=== PATIENT | female | born 1965 | race Caucasian/White ===

== ENCOUNTER 2018-09-28 17:12 | Emergency (ER) | payer OTHER ==
[~2018-09-28] VITALS: Ht 152.4 cm; Wt 70.6 kg
[2018-09-28 17:15] VITALS: Ht 152.4 cm; Wt 70.6 kg
--- NOTE | 2018-09-28 17:48 | ERD ---
ER Documentation Chief Complaint Chief Complaint TIRED HPI The patient is a 53-year-old female, presenting to the ER because she has felt tired for more than a month, she had two the ER visit, complains of intermittent chest discomfort for more than a month, seen by her physician today who sent her to the ER. She denies fever, chills, neck pain, chest chest pain, abdominal pain, vomiting, dizzy, diarrhea. She does not smoke nor drink Past medical history: Hypertension, anxiety Past surgical history: Umbilical herniorrhaphy ROS All systems reviewed and are negative except as per history of present illness. Medications Home Meds Reported Medications Vitamin B Complex* (Vitamin B Complex*) 1 Each Tablet, 1 TAB PO DAILY, TAB 09/28/18 Triamterene/Hctz* (Maxzide (37.5-25)*) 1 Each Tablet, 1 EACH PO DAILY, #30 TAB 09/28/18 Naproxen* (Naprosyn*) 500 Mg Tablet, 500 MG PO BID, TAB 09/28/18 Lorazepam* (Lorazepam*) 1 Mg Tablet, 1 MG PO HS PRN for ANXIETY, #30 TAB 09/28/18 Ibuprofen* (Ibuprofen*) 600 Mg Tablet, 600 MG PO Q6H PRN for PAIN LEVEL 1-5, TAB 09/28/18 Carisoprodol* (Carisoprodol*) 350 Mg Tablet, 350 MG PO Q8 PRN for MUSCLE SPASMS, TAB 09/28/18 Allergies Allergies: Coded Allergies: No Known Allergy (Unverified , 09/28/18) Physical Exam Vitals Physical Exam Const: No acute distress. Head: Atraumatic. Eyes: Normal Conjunctiva. ENT: Normal External Ears, Nose and Mouth. Neck: Full range of motion. No meningismus. Resp: Clear to auscultation bilaterally. Cardio: Regular rate and rhythm. Abd: Soft, non distended, normal bowel sounds, non tender. Skin: No petechiae or rashes. Back: No midline or flank tenderness. Ext: No cyanosis, or edema. Neur: Awake and alert. No focal deficit Psych: Normal Mood and Affect. Results 24 hrs Laboratory Tests Test 09/28/18 17:51 09/28/18 20:10 White Blood Count 5.7 10^3/ul Red Blood Count 5.14 10^6/ul Hemoglobin 15.0 g/dl Hematocrit 43.9 % Mean Corpuscular Volume 85.4 fl Mean Corpuscular Hemoglobin 29.2 pg Mean Corpuscular Hemoglobin Concent 34.2 g/dl Red Cell Distribution Width 11.5 % Platelet Count 176 10^3/UL Mean Platelet Volume 11.4 fl Immature Granulocytes % 0.200 % Neutrophils % 62.5 % Lymphocytes % 25.7 % Monocytes % 10.4 % Eosinophils % 0.5 % Basophils % 0.7 % Nucleated Red Blood Cells % 0.0 /100WBC Immature Granulocytes # 0.010 10^3/ul Neutrophils # 3.6 10^3/ul Lymphocytes # 1.5 10^3/ul Monocytes # 0.6 10^3/ul Eosinophils # 0.0 10^3/ul Basophils # 0.0 10^3/ul Nucleated Red Blood Cells # 0.0 10^3/ul Sodium Level 139 mmol/L Potassium Level 4.9 mmol/L Chloride Level 98 mmol/L Carbon Dioxide Level 31 mmol/L Anion Gap 10 Blood Urea Nitrogen 14 mg/dl Creatinine 0.72 mg/dl Est Glomerular Filtrat Rate mL/min > 60 mL/min Glucose Level 102 mg/dl Calcium Level 10.2 mg/dl Troponin I < 0.012 ng/ml < 0.012 ng/ml Procedures/[place] [id number] Radiology Main Line: [phone] DIAGNOSTIC IMAGING REPORT Patient: MATTIE MORALES : 1965 Age: 53 Sex: F MR #: [id number] DOS: 09/28/18 1749 Ordering MD: TARSHA VARELA MD Location: E/R Room/Bed: PROCEDURE: XR Chest. CLINICAL INDICATION: Chest pain. TECHNIQUE: AP view of the chest was obtained. COMPARISON: None available FINDINGS: The cardiomediastinal silhouette is within normal limits. The lungs are clear. No signs of pleural fluid or pneumothorax are seen. The osseous structures and soft tissues are unremarkable. IMPRESSION: 1. No evidence for acute cardiopulmonary disease. RPTAT: HGAS .Jules Smart MD, Date Time Electronically viewed and signed by .Jules Smart MD, MD on 09/28/2018 18:42 .S/ CC: ATRSHA VARELA MD [id number] EK:21p Read by emergency physician Rate/Rhythm: Normal Sinus Rhythm 98 beats/min QRS, ST, T-waves: No ST elevation, no T inversion, lat ST/T abn Impression: Abnormal EKG EK:13p Read by emergency physician Rate/Rhythm: Normal Sinus Rhythm 93 beats/min QRS, ST, T-waves: No ST elevation, no T inversion, lat ST/T abn Impression: Abnormal EKG MEDICAL MAKING DECISION: The patient is a 53-year-old female, presenting with acute generalized weakness with abnormal EKG. She is stable for outpatient follow-up The differential diagnoses considered include but are not limited to acute cor onary syndrome, acute myocardial infarction, pericarditis, pulmonary embolism, aortic dissection, pneumonia, pleural effusion, pneumothorax, GERD, chest wall pain. The patient presents with chest pain and I considered pulmonary embolism, aortic dissection, pneumothorax among other diagnoses. Evaluation for acute coronary syndrome was performed. The HEART score (www.mdcalc.com) was utilized for risk stratification and found to be <= 3. Repeat EKG and troponin @ 3 hours were unchanged. Based on this evaluation the patients risk of major adverse cardiac events is <1%. Shared decision making occurred with patient and the decision has been made to discharge the patient for outpatient evaluation and functional study within 72 hours. Departure Diagnosis: Primary Impression: Weakness Additional Impression: Chest pressure Condition: Good Comments I discussed the findings with the patient. I advised the patient to follow-up with her ostomy nurse in about 2-3 days, sooner if needed and return if any concern. Disclaimer: Inadvertent spelling and grammatical errors are likely due to EHR/dictation software use and do not reflect on the overall quality of patient care. Also, please note that the electronic time recorded on this note does not necessarily reflect the actual time of the patient encounter. TARSHA VARELA MD September 28, 2018 17:48
[2018-09-28] MEDS ORDERED: IBUP-1542 PO (22:00)
[2018-09-28] MEDS ORDERED: CARI350T29 PO (22:00)
[2018-09-28] MEDS ORDERED: LORA1TAB PO (22:00)
[2018-09-28] MEDS ORDERED: NAPR-985 PO (22:00)
[2018-09-28] MEDS ORDERED: MAXZ25 PO (22:02)
[2018-09-28] MEDS ORDERED: VIT1TABL46 PO (22:02)
[2018-09-28 22:34] VITALS: BP 147/85; PULSE 78; RESP 18
== END 2018-09-28 22:35 | disposition home or self-care (01) ==
LOC: E/R 17:12
DX: R53.1 Weakness (principal); R07.89 Other chest pain
CPT/HCPCS: 36415; 71045; 80048; 84484; 85025; 93005; Z7502